=== PATIENT | male | born 1975 | race Caucasian/White ===

== ENCOUNTER 2016-11-04 20:03 | Emergency (ER) | payer BC ==
[~2016-11-04] VITALS: Ht 185.4 cm; Wt 100.0 kg
[~2016-11-04 20:03] MED LIST: ACID REFLUX; CELEXA; REGLAN 10MG10 MG/TAB PO
[2016-11-04 20:08] VITALS: BP 139/90; PULSE 91; TEMP 98.4
[2016-11-04] MEDS ORDERED: PRILOTC (20:10)
== END 2016-11-04 21:36 | disposition home or self-care (01) ==
LOC: COL.ER 20:03
DX: S93.402A Sprain of unspecified ligament of left ankle, initial encounter (principal); W18.39XA Other fall on same level, initial encounter; Y93.64 Activity, baseball; Y92.830 Public park as the place of occurrence of the external cause